=== PATIENT | female | born 1965 | race African-American/Black ===

== ENCOUNTER 2020-07-21 09:43 | Emergency (ER) | payer MEDICAID ==
[~2020-07-21] VITALS: Ht 165.1 cm; Wt 78.0 kg
[2020-07-21 14:00] VITALS: BP 120/78
== END 2020-07-21 14:00 | disposition home or self-care (01) ==
LOC: ER 09:48
DX: T16.1XXA Foreign body in right ear, initial encounter (principal); X58.XXXA Exposure to other specified factors, initial encounter; J45.909 Unspecified asthma, uncomplicated; I10 Essential (primary) hypertension; J44.1 Chronic obstructive pulmonary disease with (acute) exacerbation; Z88.6 Allergy status to analgesic agent; Y93.89 Activity, other specified; Y92.89 Other specified places as the place of occurrence of the external cause; Y99.8 Other external cause status
CPT/HCPCS: 69200; 99284